=== PATIENT | female | born 1950 | race Caucasian/White ===

== ENCOUNTER 2023-07-19 08:23 | Observation (INO) ==
--- NOTE | 2023-06-14 15:13 | PAT Medication Instructions ---
Medication Instructions Date of Service June 14, 2023 Home Medications albuterol sulfate 2.5 mg/3 mL (0.083 %) solution for nebulization 2.5 mg inhalation Q4H PRN Wheezing cholecalciferol (vitamin D3) 25 mcg (1,000 unit) capsule 25 mcg PO QAM dextromethorphan-guaifenesin 10 mg-100 mg/5 mL oral syrup 10 ml PO Q4H PRN Cough furosemide 40 mg tablet (Lasix) 80 mg PO QAM PRN increased swelling or weight gain glucosamine 750 [id number] no1 644 mg-C 30 mg-christin 1 mg tablet (Osteo Bi-Flex Triple Strength) 1 tab PO QAM multivitamin 1 tab PO QAM acetaminophen 500 mg tablet 500 mg PO BID PRN Pain albuterol sulfate 90 mcg/actuation aerosol inhaler 2 puff inhalation 6XD PRN Whe ezing amiodarone 200 mg tablet 200 mg PO QAM apixaban 5 mg tablet 5 mg PO BID aspirin 81 mg tablet,delayed release (Adult Low Dose Aspirin) 81 mg PO QAM metoprolol succinate 50 mg tablet,extended release 24 hr 50 mg PO QAM furosemide 40 mg tablet 60 mg PO QAM levothyroxine 25 mcg tablet 25 mcg PO QAM loratadine 10 mg tablet 10 mg PO QAM polyethylene glycol 3350 17 gram/dose oral powder (Miralax) 17 g PO WK potassium chloride 20 mEq tablet,extended release 20 meq PO QAM rosuvastatin 20 mg tablet (Crestor) 20 mg PO QPM ASK your prescriber and surgeon apixaban 5 mg tablet 5 mg PO BID aspirin 81 mg tablet,delayed release (Adult Low Dose Aspirin) 81 mg PO QAM STOP taking 2 weeks before surgery (or as soon as possible if surgery is within 2 weeks) glucosamine 750 [id number] no1 644 mg-C 30 mg-christin 1 mg tablet (Osteo Bi-Flex Triple Strength) 1 tab PO QAM DO NOT take the morning of surgery cholecalciferol (vitamin D3) 25 mcg (1,000 unit) capsule 25 mcg PO QAM dextromethorphan-guaifenesin 10 mg-100 mg/5 mL oral syrup 10 ml PO Q4H PRN Cough furosemide 40 mg tablet (Lasix) 80 mg PO QAM PRN increased swelling or weight gain multivitamin 1 tab PO QAM furosemide 40 mg tablet 60 mg PO QAM loratadine 10 mg tablet 10 mg PO QAM polyethylene glycol 3350 17 gram/dose oral powder (Miralax) 17 g PO WK potassium chloride 20 mEq tablet,extended release 20 meq PO QAM Take morning of surgery With a small sip of water, OTHERWISE NOTHING TO EAT OR DRINK AFTER MIDNIGHT: albuterol sulfate 2.5 mg/3 mL (0.083 %) solution for nebulization 2.5 mg inhalation Q4H PRN Wheezing (if needed) acetaminophen 500 mg tablet 500 mg PO BID PRN Pain (if needed) albuterol sulfate 90 mcg/actuation aerosol inhaler 2 puff inhalation 6XD PRN Wheezing (use if needed; please bring rescue inhaler with you to hospital day of surgery if possible) amiodarone 200 mg tablet 200 mg PO QAM metoprolol succinate 50 mg tablet,extended release 24 hr 50 mg PO QAM levothyroxine 25 mcg tablet 25 mcg PO QAM Take evening before surgery albuterol sulfate 2.5 mg/3 mL (0.083 %) solution for nebulization 2.5 mg inhalation Q4H PRN Wheezing (if needed) dextromethorphan-guaifenesin 10 mg-100 mg/5 mL oral syrup 10 ml PO Q4H PRN Cough (if needed) furosemide 40 mg tablet (Lasix) 80 mg PO QAM PRN increased swelling or weight gain (if needed) acetaminophen 500 mg tablet 500 mg PO BID PRN Pain (if needed) albuterol sulfate 90 mcg/actuation aerosol inhaler 2 puff inhalation 6XD PRN Wheezing (if needed) rosuvastatin 20 mg tablet (Crestor) 20 mg PO QPM Other Notes If you have any questions please call us at [phone] or [phone] or [phone] or [phone]
--- NOTE | 2023-06-19 13:29 | Anesthesiology Consultation ---
Date of Service June 19, 2023 Assessment & Plan (1) Encounter for pre-operative examination: - COVID screening: Per assessment on 06/19: No known COVID-19 positive contacts or current COVID-19 related symptoms. Travel screen negative. Patient vaccinated. - Outpatient joint assessment: Pt currently scheduled for inpatient pathway. If surgeon requests review for outpatient joint pathway, patient is not recommended candidate for outpatient joint program from anesthesia standpoint. - Possible difficult intubation: d/t anatomy - Eliquis instructions per surgeon/prescriber - Cardiology visit (06/13/23): "As noted, in 2021 the patient was hospitalized at [facility] with bilateral pulmonary embolism and right heart strain. She developed atrial fibrillation as well as a wide complex tachycardia. Cardiac catheterization took place revealing a 70% LAD lesion for which medical management was recommended. She was ultimately transferred to [facility]. Electrophysiology at seen the patient and felt that the wide complex tachycardia was actually atrial fibrillation with rapid ventricular response with aberrant conduction rather than ventricular tachycardia. She is in turn remained on Eliquis for both treatment of pulmonary embolism and stroke prophylaxis. She is remained on beta-jaguar and amiodarone.. She describes stable cardiac signs and symptoms. I estimate that her risk of perioperative cardiac complication is low and would recommend proceeding with rotator cuff surgery without further cardiac testing.. With regards to her Eliquis, I recommend that this is held prior to her rotator cuff surgery. She should take her last dose in the evening 3 days prior to the procedure." Chart Review Chart Review: Acceptable Risk for Surgery and Patient seen in Pre Admission Testing Teaching & Discussion Pre-Anesthesia Teaching/Discussion Notes: Instructed NPO after midnight before surgery,except medications with 15 cc of water. Medication instructions provided according to the PAT guidelines. History Surgery Operation Date: 07/19/23 08:10 Proposed Procedures p Left Total Shoulder Arthroplasty Reverse - Dean Baumann, Height/Weight Height: 5 ft 6 in Weight: 106.4 kg Allergies Allergy/AdvReac Type Severity Reaction Status Date / Time cat dander Allergy Severe Dyspnea Verified 06/18/23 09:52 Penicillins Allergy Intermediate Swelling Verified 06/18/23 09:52 oxycodone [From Percocet] AdvReac Severe N/V Verified 06/18/23 09:52 Medications Home Medications Medication Instructions Recorded Confirmed Last Taken albuterol sulfate 2.5 mg/3 mL 2.5 mg inhalation Q4H PRN Wheezing 12/05/21 06/11/23 Unknown (0.083 %) solution for nebulization cholecalciferol (vitamin D3) 25 25 mcg PO QAM 12/05/21 06/11/23 Unknown mcg (1,000 unit) capsule dextromethorphan-guaifenesin 10 10 ml PO Q4H PRN Cough 12/05/21 06/11/23 Unknown mg-100 mg/5 mL oral syrup furosemide 40 mg tablet (Lasix) 80 mg PO QAM PRN increased 12/05/21 06/11/23 Unknown swelling or weight gain glucosamine 750 [id number] 1 tab PO QAM 12/05/21 06/11/23 Unknown no1 644 mg-C 30 mg-christin 1 mg tablet (Osteo Bi-Flex Triple Strength) multivitamin 1 tab PO QAM 12/05/21 06/11/23 Unknown acetaminophen 500 mg tablet 500 mg PO BID PRN Pain 03/09/22 06/11/23 Unknown albuterol sulfate 90 mcg/actuation 2 puff inhalation 6XD PRN Wheezing 03/09/22 06/11/23 Unknown aerosol inhaler amiodarone 200 mg tablet 200 mg PO QAM 06/19/22 06/11/23 Unknown apixaban 5 mg tablet 5 mg PO BID 06/19/22 06/11/23 Unknown aspirin 81 mg tablet,delayed 81 mg PO QAM 06/19/22 06/11/23 Unknown release (Adult Low Dose Aspirin) metoprolol succinate 50 mg 50 mg PO QAM 06/19/22 06/11/23 Unknown tablet,extended release 24 hr furosemide 40 mg tablet 60 mg PO QAM 06/11/23 06/11/23 Unknown levothyroxine 25 mcg tablet 25 mcg PO QAM 06/11/23 06/11/23 Unknown loratadine 10 mg tablet 10 mg PO QAM 06/11/23 06/11/23 Unknown polyethylene glycol 3350 17 17 g PO WK 06/11/23 06/11/23 Unknown gram/dose oral powder (Miralax) potassium chloride 20 mEq 20 meq PO QAM 06/11/23 06/11/23 Unknown tablet,extended release rosuvastatin 20 mg tablet (Crestor) 20 mg PO QPM 06/11/23 06/11/23 Unknown Past Medical History Medical History Asthma Bronchitis Chronic CAD (coronary artery disease) Medical management recommended per 05/2022 cardiac cath CKD (chronic kidney disease) stage 3a Claustrophobia Congestive heart failure right side History of COVID-19 03/2021- fever, mild body aches, SOB > resolved Hyperlipidemia Hypertension MGUS (monoclonal gammopathy of unknown significance) Follows with Dr. Santa/AMBER Osteoarthritis PAF (paroxysmal atrial fibrillation) Follows with Dr Roland Pulmonary embolism Bilateral, 05/2022 Rheumatoid arthritis Exercise / Class Metabolic Activity III < 4 Walking/Shop/Light housework (uses walker) Past Family History Family History Mother Family history of diabetes mellitus Other No family history of adverse response to anesthesia Past Surgical History Surgical History History of cardiac cath 05/2022 [facility] Lisa History of cataract surgery R/L History of section x1 History of cholecystectomy History of colonoscopy History of dilatation and curettage History of tonsillectomy History of total knee replacement R/L S/P vascular surgery Thrombectomy to remove "clots from lungs" 05/2022 Past Anesthesia History No Hx of Anesthesia Complications and No Family Hx of Anesthesia Complications History of PONV No Hx of PONV and No Hx of Motion Sickness Social History Smoking Status: Never smoker Do You Dip or Chew Tobacco: No Hx Alcohol Use: No Hx Substance Use: No Review of Systems Patient denies chest pain, shortness of breath, fever, chills, cough, wheezing, palpitations. Physical Exam Vital Signs VITALS BP 146/63 P 65 TEMP 97.6 SP02 95%RA RESP 20 PHYSICAL Full cervical extension range of motion. Full TMJ range of motion. TMD 4 finger breaths Mallampati Score 4 (small oral opening) Dentition: missing teeth Lungs: clear throughout to auscultation Cardiac: regular rate and rhythm, no murmurs noted Spine: normal Carotid arteries: negative bruit Extremities: no LE edema Short, thick neck Lab Results Anesthesia Preop Results Results Anesthesia Widget: WBC 6.36 K/ul (4.8-10.8) 06/19/23 Hgb 12.0 g/dl (12.0-16.0) 06/19/23 Hct 37.2 % (37.0-47.0) 06/19/23 Plt 226 K/uL (130-400) 06/19/23 Na 140 mmol/L (136-145) 06/19/23 K 3.8 mmol/L (3.5-5.1) 06/19/23 Cl 104 mmol/L (98-107) 06/19/23 CO2 29 mmol/L (21-32) 06/19/23 BUN 21 mg/dl (6-23) 06/19/23 Creat 1.10 mg/dl (0.6-1.2) 06/19/23 Glucose Level 114 mg/dl (70-99(Fasting)) H 06/19/23 PT 11.4 Seconds (9.0-12.0) 06/19/23 PTT 31.9 Seconds (21.0-31.0) H 06/19/23 INR 1.0 (0.9-1.1) 06/19/23 Blood Type A Positive 06/19/23 Antibody Screen NEGATIVE 06/19/23 Testing Electrocardiogram Date: 06/13/23 NSR at 62bpm. Low voltage QRS, consider pulmonary disease, pericardial effusion or normal variant. Cannot r/o anterior infarct (cited on or before 07/26/22). Chest X-Ray Date: 06/19/23 FINDINGS: Lung volumes are normal. Lungs are clear. There is no pneumothorax or pleural effusion. Mild cardiomegaly is unchanged. Mediastinal contours are stable. There is no evidence for pulmonary edema. IMPRESSION: No acute cardiopulmonary findings. . Stable cardiomegaly. Echocardiogram Date: 07/25/22 LVEF 60%. LV wall motion is normal. Mild MR. Stress Test Date: 03/15/23 Type: nuclear Lexiscan stress EKG not indicative of ischemia. Nuclear portion "normal study" LVEF 74%. Cardiac Catheterization Date: 05/06/22 Moderate three-vessel coronary artery disease: LAD mid 70%, LCx proximal 40%, RCA mid 30%. Elevated right and left-sided filling pressures with increased pulmonary vascular resistance suggesting a combination of diastolic heart failure and pulmonary hypertension on the basis of pulmonary vascular/parenchymal disease. Atrial fib with rapid ventricular response. Mo nomorphic ventricular tachycardia of unknown etiology. Recommendations: Continue anticoagulation for atrial fibrillation pulmonary embolismconsider transition to direct oral anticoagulantwe will leave at discretion of the critical care team. Rate control and possibly rhythm control with IV amiodarone protocol. Monomorphic V. tach of unknown etiology, further evaluation and monitoring required. COVID-19 Risk Screen Screening Information COVID-19 Screen Date: 06/19/23 Exposure 21 Days Family/Household +COVID Last 21 Days: No Exposure 10 Days Any COVID Exposure Last 10 Days: No Symptoms Last 10 Days Experienced COVID Sx Last 10 Days: No + COVID 0-90 Days COVID + in Last 0-90 Days: No
[~2023-07-19 08:23] MED LIST: ACETAMINOPHEN 500 MG TAB PO SCH; BUPIVACAINE 0.5 % 5 MG/1 ML PF 10ML VIAL ONE; FAMOTIDINE 20 MG TAB PO SCH; GABAPENTIN 300 MG CAP PO SCH; LR 15ML/HR IV SCH; LR 60ML/HR IV SCH; ORTHO JOINT MIX INFIL SCH; TRANEXAMIC ACID 1,000 MG **IV Intra-op IV SCH; TRANEXAMIC ACID 1,000 MG **IV Pre-op IV SCH; VANCOMYCIN HCL 1,500 MG in SODIUM CHLORIDE 0.9% 500 ML IV SCH; dexAMETHasone 4 MG TAB PO SCH
[2023-07-19] MEDS ORDERED: PROPOFOL IV EMULSION 10 MG/ML 20 ML VIAL IV ONE (08:58)
[2023-07-19] MEDS ORDERED: MIDAZOLAM HCL 1 MG/ML 2ML VIAL ONE (08:58)
[2023-07-19] MEDS ORDERED: fentaNYL citrate PF 100 MCG/2 ML VIAL ONE (08:58)
[2023-07-19] MEDS ORDERED: DEXAMETHASONE SOD INJ 4 MG/ML VIAL ONE (08:58)
[2023-07-19] MEDS ORDERED: ROCURONIUM BROMIDE 10 MG/ML 5 ML VIAL IV ONE (08:58)
[2023-07-19] MEDS ORDERED: LIDOCAINE 2% 2 ML VIAL/AMP(20MG/ML) INFIL ONE (08:58)
[2023-07-19] MEDS ORDERED: ONDANSETRON INJ 2 MG/ML 2 ML VIAL ONE (08:58)
--- NOTE | 2023-07-19 09:14 | History & Physical Bridge Note ---
Date of Service July 19, 2023 History & Physical Bridge Note I have examined the patient, reviewed the History & Physical and in the interval since the performance of the History & Physical I have noted the following changes of clinical significance: no changes noted
[2023-07-19] MEDS ORDERED: ORTHO JOINT ANESTHETIC ONE (09:48)
[2023-07-19] MEDS ORDERED: ATROPINE SULFATE 0.1 MG/ML 10ML SYR IV PRN (09:54)
[2023-07-19] MEDS ORDERED: ONDANSETRON INJ 2 MG/ML 2 ML VIAL IV PRN ×2 (09:54→13:55)
[2023-07-19] MEDS ORDERED: fentaNYL citrate PF 100 MCG/2 ML VIAL IV PRN (09:54)
[2023-07-19] MEDS ORDERED: PROMETHAZINE HCL 6.25 MG in SODIUM CHLORIDE 0.9% 50 ML IV PRN (09:54)
[2023-07-19] MEDS ORDERED: LABETALOL HCL IV 5 MG/ML 20ML IV PRN (09:54)
[2023-07-19] MEDS ORDERED: SUGAMMADEX SODIUM 200 MG/2 ML VIAL IV ONE (10:48)
[2023-07-19] MEDS ORDERED: ePHEDrine sulfate 50 MG/ML SYR ONE (10:48)
--- NOTE | 2023-07-19 11:24 | Operative Report ---
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 A tenodesis was opted. This was a separate and distinct portion of the procedure. For these reasons, a CPT code modifier 59 will be added to this case. Implants used: I used a Biomet Comprehensive reverse total shoulder arthroplasty system with a size 11 press fit micro humeral stem, a +6 offset humeral tray and a standard humeral bearing, a 25 mm small augment baseplate with a 6.5 mm central screw and superior and inferior locking screws, and a size 36 mm eccentric glenosphere. Danica arrived at [facility] for the above procedure. She was seen in the preoperative holding area and the operative extremity was identified and signed. She was given a preoperative antibiotic, TXA, and an interscalene nerve block. She was taken back to the operating room, laid on table in supine position, and put under general anesthesia. She was then put into the beachchair position. The shoulder was then prepped and draped in sterile fashion. A timeout was done and the patient and the operative extremity was properly identified. A deltopectoral approach was used. Dissection was taken down through the fascia and the deltoid was retracted laterally and the conjoined tendon was retracted medially. The anterior shoulder was exposed. The biceps groove was opened up and the biceps tendon was examined extensively. The biceps tendon demonstrated enlargement and inflammatory changes consistent with longstanding inflammation in the context of osteoarthritis and cuff arthropathy. The long head of the biceps tendon was then tenodesed to the upper border of the pectoralis major. This was a separate and distinct portion of the procedure. The subscapularis was then directly released off the lesser tuberosity with a peel technique. The inferior capsule was released and the humeral head was dislocated. A canal finding reamer was sent down the center of the humeral canal. Sequential reaming up to a size 11 reamer was done. Off that reamer, a proximal humeral resection guide was placed. The proximal humerus was resected at 135 of inclination and 25 of retroversion. Osteophytes were then removed and the glenoid was exposed. Time was spent doing a complete capsular and labral release. The glenoid guide was then placed in the inferior aspect of the glenoid. A 3.2 mm Steinmann pin was then placed into the glenoid vault at 10 of inclination. The glenoid baseplate was then reamed. The final size 25 mm small augment baseplate was then impacted in the place. A 6.5 mm central screw was then placed followed by superior and inferior locking screws. A 36 mm eccentric glenosphere was then impacted into place. Surrounding soft tissues were then injected with 100 cc an orthopedic pain control cocktail. The proximal humerus was then exposed. Sequential broaching of the humerus up to a size 11 broach was done. Off that broach a +6 offset humeral tray was trialed. The shoulder was then reduced, brought through a full range of motion, and felt to be stable. The shoulder was then dislocated and the broach was removed. The final size 11 micro press-fit humeral stem was then impacted into place. A standard humeral bearing was then snapped onto a +6 offset humeral tray. The humeral tray was then impacted onto the humeral stem. The shoulder was once again reduced, brought through a full range of motion, and felt to be stable. The subscapularis was then tenodesed back to the lesser tuberosity with transosseous FiberWire sutures and side to side sutures with the arm in 45 of external rotation. Surgiphor Betadine lavage was used throughout the case. The joint was then irrigated with normal saline solution. Hemostasis was obtained. The interval was closed with 2-0 Vicryl suture. The skin was then closed with 2-0 Vicryl and kelby. A Silverlon dressing was placed and the arm was rested in a regular arm sling. She was then extubated and transferred to a hospital bed. She taken to the postanesthesia care unit in stable condition. She tolerated the procedure well. Dean Leon PA-C, was present for the entire procedure. He was critical for patient positioning, prepping, draping, retraction exposure, wound closure and application of sterile dressing. I attest to the content of the Intraoperative Record and any orders documented therein. Any exceptions are noted below.
--- NOTE | 2023-07-19 12:21 | XRay Report ---
XR shoulder LT min 2V routine CLINICAL HISTORY: Post shoulder surgery TECHNIQUE: 3 views of the left shoulder were obtained. Comparison: Comparison is made to left shoulder radiograph 06/19/2023 FINDINGS: Patient is status post shoulder arthroplasty with expected postsurgical changes including soft tissue swelling and subcutaneous emphysema. No periarticular lucency or hardware fracture is seen. IMPRESSION: Expected postoperative appearance status post placement of shoulder arthroplasty. ACT 112: Negative or not required by law. Electronically signed by: Benjamin Manjarrez M.D. 07/19/2023 12:20 PM
--- NOTE | 2023-07-19 13:11 | Anesthesiology Progress Note ---
Date of Service July 19, 2023 Anesthesia Post Procedure Vital Signs Vital Signs: Temp Pulse Pulse Resp BP Pulse Ox O2 Del Method 07/19/23 13:00 36.3 C L 61 22 139/65 98 Nasal Cannula 07/19/23 12:45 60 23 147/73 H 100 Nasal Cannula 07/19/23 12:30 60 20 141/67 H 98 Oxymask 07/19/23 12:05 60 22 147/69 H 99 Oxymask 07/19/23 12:15 61 23 145/66 H 98 Oxymask 07/19/23 11:55 60 23 151/68 H 99 Oxymask 07/19/23 11:47 36.1 C L 60 20 148/71 H 97 Oxymask 07/19/23 09:12 36.6 C 71 20 196/86 H 96 Room Air O2 Flow Rate 07/19/23 13:00 1 07/19/23 12:45 1 07/19/23 12:30 1 07/19/23 12:05 3 07/19/23 12:15 1 07/19/23 11:55 5 07/19/23 11:47 7 07/19/23 09:12 Pain Intensity Left Shoulder: Pain Intensity: 0 Transfer of Care Handoff Completed per policy Notes Mental Status: alert / awake / arousable Patient Amnestic to Procedure: Yes Nausea / Vomiting: adequately controlled Pain: adequately controlled Airway Patency, RR, SpO2: stable & adequate BP & HR: stable & adequate Hydration State: stable & adequate Anesthetic Complications: no major complications apparent
[2023-07-19] MEDS ORDERED: guaiFENesin/DEXTROM SYRUP 100MG/10MG 5ML UDC PO PRN (13:55)
[2023-07-19] MEDS ORDERED: ALBUTEROL HFA 8 GM INHALER INH PRN (13:55)
[2023-07-19] MEDS ORDERED: traMADol HCL 50 MG TABLET PO PRN (13:55)
[2023-07-19] MEDS ORDERED: HYDROmorphone INJ 0.5 MG/0.5 ML SYR IV PRN (13:55)
[2023-07-19] MEDS ORDERED: MAGNESIUM HYDROXIDE SUSP 30 ML UDC PO PRN (13:55)
[2023-07-19] MEDS ORDERED: NALOXONE HCL 0.4 MG/1 ML VIAL/CARP IV PRN (13:55)
[2023-07-19] MEDS ORDERED: METOCLOPRAMIDE HCL INJ 5 MG/ML 2 ML VIAL IV PRN (13:55)
[2023-07-19] MEDS ORDERED: FUROSEMIDE 80 MG TAB PO PRN (13:55)
[2023-07-19] MEDS ORDERED: bisacodyL 10 MG SUPP PR PRN (13:55)
[2023-07-19] MEDS ORDERED: ALBUTEROL 0.083% NEBU SOLN 3 ML VIAL INH PRN (13:55)
[2023-07-19] MEDS: SODIUM CHLORIDE 0.9% 1000ML 1,000 ML IV SCH (14:28)
[2023-07-19] MEDS: KETOROLAC TROMETHAMINE 15 MG/ML VIAL IV SCH ×2 (14:48→20:12)
[2023-07-19] MEDS: ACETAMINOPHEN 500 MG TAB PO SCH ×2 (14:50→21:34)
[2023-07-19] MEDS: ceFAZolin 2000MG 2,000 MG/15 ML SYR IV SCH (18:08)
[2023-07-19] MEDS: DOCUSATE SODIUM 100 MG CAP PO SCH (20:14)
[2023-07-19] MEDS ORDERED: ROSUVASTATIN CALCIUM 20 MG TAB PO SCH (21:00)
[2023-07-19] MEDS ORDERED: SENNA 8.6 MG TAB PO SCH (21:00)
[2023-07-20] MEDS: SODIUM CHLORIDE 0.9% 1000ML 1,000 ML IV SCH (00:45)
[2023-07-20] MEDS: ceFAZolin 2000MG 2,000 MG/15 ML SYR IV SCH (02:49)
[2023-07-20] MEDS: KETOROLAC TROMETHAMINE 15 MG/ML VIAL IV SCH ×2 (02:49→09:48)
[2023-07-20] MEDS: ACETAMINOPHEN 500 MG TAB PO SCH (05:01)
[2023-07-20] MEDS ORDERED: LEVOTHYROXINE SODIUM 25 MCG TABLET PO SCH (06:30)
--- NOTE | 2023-07-20 07:03 | Orthopedic Progress Note ---
Date of Service July 20, 2023 Assessment & Plan (1) Status post reverse total replacement of left shoulder: Overall she is doing very well. She is not having much pain in the left shoulder. She will be seen by physical therapy today for ambulation and range of motion exercises. She can be discharged home later today. She will follow- up with orthopedics in 2 weeks. Subjective Danica was seen and examined at bedside this morning. Overall she is doing very well. She is not having much pain in the left shoulder. She was able to get some sleep last night. She has no complaints.. Review of Systems All systems reviewed & are unremarkable except as noted in HPI & below. Physical Exam On physical examination of the left shoulder, the dressing is clean and dry. She is wearing her sling as instructed. She has active motion of her hand and her wrist.. Results & Data Results & Data Laboratory Results . Diagnostic Findings Postoperative x-rays of the left shoulder show the prosthesis to be in anatomic alignment without any evidence of fracture, dislocation, or loosening. PG Care Time/CCT Total # of Minutes Spent Total Time Spent with Patient: Total time spent is greater than 50% in coordination of care (as documented) at patient's floor/unit and/or counseling patient: Coding Level of Care Code 39477 Post Operative Follow-Up Diagnoses Status post reverse total replacement of left shoulder Z96.612
--- NOTE | 2023-07-20 07:04 | Discharge Summary ---
Date of Service July 20, 2023 Principal Diagnosis Same as "Discharge Diagnosis" noted below under Discharge Instructions. Discharge Exam On physical examination of the left shoulder, the dressing is clean and dry. She is wearing her sling as instructed. She has active motion of her hand and her wrist.. Discharge Data Procedures Performed Operation Date: 07/19/23 10:00 Actual Procedures p Left Total Shoulder Arthroplasty Reverse(Left) - Dean Baumann DO Ordered Studies 07/19/23 05:00 US - OR guided needle placemen Routine Hospital Course (1) Status post reverse total replacement of left shoulder: On July 19, 2023 Danica arrived at [facility] and underwent a left reverse shoulder replacement without complication. She had a general anesthetic and a left interscalene nerve block. Postoperatively she was placed in a sling and transferred to the general orthopedic floors. Her hospital course was uneventful. On postop day #1, her vital signs were stable and her pain was well controlled. She was able to participate well with physical therapy doing ambulation and range of motion exercises. She was then discharged home. She will follow-up with orthopedics in 2 weeks. PG Care Time/CCT Total # of Minutes Spent Total Time Spent with Patient: Total time spent is greater than 50% in coordination of care (as documented) at patient's floor/unit and/or counseling patient: Discharge Plan Discharge Items Patient Disposition: Home - Home Health Services Reason For Visit: Left Shoulder Degenerative Joint Disease Discharge Diagnosis: Left reverse shoulder replacement Activity: Per Instructions section Call non-emergency contact if: your wound has increased redness and your wound has increased drainage Follow-up/Referrals: De Verde MD [Primary Care Provider] - Diet: Regular Addtl Attending Provider Instructions: Activity and Therapy Recommendations: * If you are using [facility] then therapy will be provided at your home until they feel you have accomplished all of your goals. * If you are using [facility] then Physical Therapy will be provided until they feel you are ready to start Outpatient Physical Therapy. * If you are not using home therapy then Outpatient Physical Therapy should start about 3-5 days from your day of surgery. Therapy will last about 8-12 weeks * Wear your sling for 3 weeks, unless otherwise instructed. You may remove your sling to shower and to dress, but otherwise, you should be in your sling at all times, including while sleeping * The shoulder replacement is very stable and you can use your hand while in the sling * You were shown a series of exercises in the hospital. Do these exercises daily including the exercises you were shown in physical therapy. Medications: * Narcotic You will likely be sent home from the hospital with a prescription for the narcotic pain medication that worked best throughout your stay. * Other medications may be prescribed for specific circumstances. If you have any questions, please call the office at . * Resume previous home medications unless otherwise instructed Dressing Care: Leave the Silverlon dressing in place for 7 days. After 7 days you may remove the dressing. If the incision is not draining then you may leave the kelby open to air. If there is a little bit of drainage or if the kelby are getting stuck on your clothing then cover the incision with a dry dressing. The kelby will be removed at your 2 week follow-up appointment. Showering: You may shower with the Silverlon dressing in place. Do not let the shower spray hit the dressing directly. Pat the Silverlon dressing dry. If the dressing becomes wet underneath, then simply remove the dressing. Keep the incision dry until you are 7 days out from the day of surgery. After 7 days you may remove the Silverlon dressing and shower with the kelby exposed. Let soapy water run over the kelby and pat them dry. Do not scrub or soak the incision. Things To Watch For: * Drainage from the incision site that occurs more than one week after your surgery. * Increased redness at the incision site. * Fever above 102 degrees Fahrenheit. * Unusual chest pain or shortness of breath. * Call [facility] at with any of the above problems Follow-Up Visit: Follow-up with Dr. Baumann's PA (Dean Leon) 2-3 weeks after your day of surgery. He will remove your kelby and answer any questions. If you have any additional questions or concerns, Dr Baumann is usually in the office at the same time and will be available An appointment was probably scheduled when you signed-up for surgery in the office. If you have any questions call More detailed instructions as well as Frequently Asked Questions were provided in a folder by our office when you signed-up for surgery. Please review these instructions when you get home. If you have any further questions or concerns, please feel free to call the office at [phone] Pending Studies at Discharge: No Stand-Alone Forms: [facility] Medications and DC Order Prescriptions: New tramadol 50 mg Tablet 50 mg PO Q4H PRN (Reason: pain) Qty: 30 0RF Continued albuterol sulfate 2.5 mg /3 mL (0.083 %) solution for nebulization 2.5 mg inhalation Q4H PRN (Reason: Wheezing) furosemide [Lasix] 40 mg tablet 80 mg PO QAM PRN (Reason: increased swelling or weight gain) dextromethorphan-guaifenesin 10-100 mg/5 mL syrup 10 ml PO Q4H PRN (Reason: Cough) cholecalciferol (vitamin D3) 25 mcg (1,000 unit) capsule 25 mcg PO QAM Osteo Bi-Flex Triple Strength 750 mg-644 mg- 30 mg-1 mg tablet 1 tab PO QAM multivitamin Tablet 1 tab PO QAM amiodarone 200 mg tablet 200 mg PO QAM apixaban 5 mg tablet 5 mg PO BID aspirin [Adult Low Dose Aspirin] 81 mg tablet,delayed release (DR/EC) 81 mg PO QAM metoprolol succinate 50 mg tablet extended release 24 hr 50 mg PO QAM acetaminophen [Tylenol Ex Str Rapid Release] 500 mg Tablet 500 mg PO BID PRN (Reason: Pain) albuterol sulfate 90 mcg/actuation Hfa Aerosol Inhaler 2 puff INHALATION 6XD PRN (Reason: Wheezing) furosemide 40 mg Tablet 60 mg PO QAM levothyroxine 25 mcg Tablet 25 mcg PO QAM polyethylene glycol 3350 [Miralax] 17 gram/dose Powder 17 g PO WK loratadine 10 mg Tablet 10 mg PO QAM rosuvastatin [Crestor] 20 mg Tablet 20 mg PO QPM potassium chloride 20 mEq Tablet Extended Release 20 meq PO QAM Admission Data Admit Date/Time: 07/19/23 11:47 Attending Provider: Dean Baumann Admit Provider: Dean Baumann Primary Care Provider: [place]
[2023-07-20] MEDS ORDERED: dexAMETHasone 4 MG TAB PO SCH (08:00)
[2023-07-20] MEDS ORDERED: ASPIRIN 81 MG ECTAB PO SCH (09:00)
[2023-07-20] MEDS ORDERED: POTASSIUM CHLORIDE CRTAB 20 MEQ TABCR PO SCH (09:00)
[2023-07-20] MEDS ORDERED: MULTIVITAMIN TAB PO SCH (09:00)
[2023-07-20] MEDS ORDERED: METOPROLOL SUCC 50MG EXT REL TAB PO SCH (09:00)
[2023-07-20] MEDS ORDERED: APIXABAN 5 MG TABLET PO SCH (09:00)
[2023-07-20] MEDS ORDERED: AMIODARONE 200 MG TAB PO SCH (09:00)
[2023-07-20] MEDS ORDERED: FUROSEMIDE 20 MG TAB PO SCH (09:00)
[2023-07-20] MEDS ORDERED: LORATADINE 10 MG TAB PO SCH (09:00)
[2023-07-20] MEDS: DOCUSATE SODIUM 100 MG CAP PO SCH (09:46)
== END 2023-07-20 10:30 | disposition home health service (06) ==
LOC: 3E 08:23 → ASU 08:23